=== PATIENT | male | born 1965 | race Hispanic/Latino ===

== ENCOUNTER → 2024-10-27 | Outpatient (CLI) | payer OTHER ==
--- NOTE | 2024-10-28 07:46 | HMCIMG ---
EXAM: CT Cardiac calcium scoring. CLINICAL HISTORY: Screening. TECHNIQUE: Thin collimated axial CT cardiac images were obtained. A CT scan is done according to ALARA (As Low As Reasonably Achievable). CONTRAST: None. COMPARISON: None. FINDINGS: Calcium Score: VESSEL Number of lesions Volume mm3 Equi. Mass/mg Calcium score LM 0 0.0 - 0.0 LAD 0 0.0 - 0.0 LCX 1 5.6 - 6.6 RCA 0 0.0 - 0.0 Total 1 5.6 - 6.6 IMPRESSION: The total calcium score is 6.6. 42nd percentile. Mild pericardial effusion. /[place]
== END | disposition home or self-care (01) ==
LOC: RAH 10:48
PROVIDERS: ATTEND Family Medicine
DX: Z13.6 Encounter for screening for cardiovascular disorders (principal); I31.39 Other pericardial effusion (noninflammatory); E78.00 Pure hypercholesterolemia, unspecified
CPT/HCPCS: 75571